=== PATIENT | female | born 2000 | race Caucasian/White ===

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

== ENCOUNTER 2020-02-04 20:02 | Inpatient (IN) | payer OTHER ==
[~2020-02-04] VITALS: Ht 157.5 cm; Wt 122.0 kg
[2020-02-04] MEDS ORDERED: ESCI20 PO (20:23)
[2020-02-04] MEDS ORDERED: ACYC400 (20:23)
[2020-02-04 20:25] LABS: BASOPHILS ABSOLUTE AUTO 0.04 K/mm3 (0.00-0.23); BASOPHILS PERCENT AUTO 0 % (0-2); EOSINOPHILS ABSOLUTE AUTO 0.12 K/mm3 (0.00-0.68); EOSINOPHILS PERCENT AUTO 1 % (0-6); Hemoglobin 13.5 g/dL (11.5-16.0); IMMATURE GRAN ABSOLUTE AUTO 0.11 K/mm3 (0.00-0.10); IMMATURE GRAN PERCENT AUTO 1 % (0-1); LYMPHOCYTES ABSOLUTE AUTO 2.87 K/mm3 (0.84-5.20); LYMPHOCYTES PERCENT AUTO 19 % (21-46); MONOCYTES ABSOLUTE AUTO 1.05 K/mm3 (0.16-1.47); MONOCYTES PERCENT AUTO 7 % (4-13); Mean Corpuscular HGB 28.3 pg (26.0-34.0); Mean Corpuscular HGB Conc 32.9 g/dL (31.5-36.5); Mean Corpuscular Volume 86 fL (80-100); Mean Platelet Volume 10.6 fL (9.1-12.4); NEUTROPHILS PERCENT AUTO 72 % (41-73); Platelet Count 250 K/mm3 (150-400); RDW Standard Deviation 43.7 fL (35.1-46.3); Red Blood Cell Count 4.77 M/mm3 (3.80-5.20); White Blood Cell Count 14.99 K/mm3 (4.00-11.30)
[2020-02-04 20:46] LABS: International Normalized Ratio 0.9; Prothrombin Time Results 9.7 Sec (9.7-11.5)
[2020-02-06 06:02] LABS: BASOPHILS ABSOLUTE AUTO 0.04 K/mm3 (0.00-0.23); BASOPHILS PERCENT AUTO 0 % (0-2); EOSINOPHILS PERCENT AUTO 0 % (0-6); Hematocrit 34.3 % (33.0-51.0); Hemoglobin 11.2 g/dL (11.5-16.0); IMMATURE GRAN PERCENT AUTO 1 % (0-1); LYMPHOCYTES ABSOLUTE AUTO 1.89 K/mm3 (0.84-5.20); LYMPHOCYTES PERCENT AUTO 8 % (21-46); MONOCYTES ABSOLUTE AUTO 1.85 K/mm3 (0.16-1.47); MONOCYTES PERCENT AUTO 8 % (4-13); Mean Corpuscular HGB 27.9 pg (26.0-34.0); Mean Corpuscular HGB Conc 32.7 g/dL (31.5-36.5); Mean Corpuscular Volume 86 fL (80-100); Mean Platelet Volume 10.4 fL (9.1-12.4); NEUTROPHILS ABSOLUTE AUTO 18.99 K/mm3 (1.96-9.15); NEUTROPHILS PERCENT AUTO 82 % (41-73); Platelet Count 218 K/mm3 (150-400); RDW Coefficient Variation 14.2 % (11.7-14.2); RDW Standard Deviation 43.5 fL (35.1-46.3); Red Blood Cell Count 4.01 M/mm3 (3.80-5.20); White Blood Cell Count 23.07 K/mm3 (4.00-11.30)
[2020-02-06 06:38] LABS: International Normalized Ratio 0.92; Prothrombin Time Results 9.9 Sec (9.7-11.5)
--- NOTE | 2020-02-06 09:56 | NUR ---
RN ROUNDED TOP HELP WITH . RN HELPED TO LATCH NB. INSTRUCT/DEMO WIDENING LATCH, CORRECT POSITIONING, AND NIPPLE SHAPE AFTER FEEDS. INSTRUCT/REVIEWED BOOKLET AND BROCHURE ON WHAT TO EXPECT DURING THE FIRST WEEK WITH AND CHANGES IN NB. PT VERBALIZED UNDERSTANDING AND DENIES ANY FURTHER QUESTIONS OR CONCERNS.
--- NOTE | 2020-02-06 10:18 | NUR ---
PT UP AMBULATING IN HALLS WITH INFANT
--- NOTE | 2020-02-06 18:05 | NUR ---
AMBULATING HALLS WITH AND SIGNIFICANT OTHER
[2020-02-07 05:00] LABS: International Normalized Ratio 1.02; Prothrombin Time Results 10.9 Sec (9.7-11.5)
--- NOTE | 2020-02-07 07:44 | NUR ---
Pt sleeping soundly, did not wake when breakfast brought to room. SO asleep at bedside.
[2020-02-07] MEDS ORDERED: Percocet 5-3251 EACH PO (10:37)
[2020-02-07] MEDS ORDERED: WARF1 PO (10:39)
[2020-02-07] MEDS ORDERED: WARF5 PO ×2 (10:39)
--- NOTE | 2020-02-07 12:08 | NUR ---
No acute changes t/o shift. ID bands matched w/nb. Pt denies additional questions/concerns. Pt d/c'd home ambulatory to care of SO.
== END 2020-02-07 12:10 | disposition home or self-care (01) | DRG 806 ==
LOC: BC 20:02
PROVIDERS: ADMIT Nurse Practitioner Obstetrics & Gynecology
PROC: 3E0P7VZ Introduction of Hormone into Female Reproductive, Via Natural or Artificial Opening (ICD-10-PCS; 2020-02-04)
PROC: 10E0XZZ Delivery of Products of Conception, External Approach (ICD-10-PCS; principal; 2020-02-05)
PROC: 10907ZC Drainage of Amniotic Fluid, Therapeutic from Products of Conception, Via Natural or Artificial Opening (ICD-10-PCS; 2020-02-05)
PROC: 3E033VJ Introduction of Other Hormone into Peripheral Vein, Percutaneous Approach (ICD-10-PCS; 2020-02-05)
PROC: 0HQ9XZZ Repair Perineum Skin, External Approach (ICD-10-PCS; 2020-02-05)
PROC: 3E0R3BZ Introduction of Anesthetic Agent into Spinal Canal, Percutaneous Approach (ICD-10-PCS; 2020-02-05)
DX: O99.12 Other diseases of the blood and blood-forming organs and certain disorders involving the immune mechanism complicating childbirth (principal); D68.51 Activated protein C resistance; Z37.0 Single live birth; Z3A.39 39 weeks gestation of pregnancy; O69.81X0 Labor and delivery complicated by cord around neck, without compression, not applicable or unspecified; O77.0 Labor and delivery complicated by meconium in amniotic fluid; O99.344 Other mental disorders complicating childbirth; F41.9 Anxiety disorder, unspecified; F32.9 Major depressive disorder, single episode, unspecified; O70.0 First degree perineal laceration during delivery; O99.214 Obesity complicating childbirth; E66.01 Morbid (severe) obesity due to excess calories
CPT/HCPCS: 36415; 51702; 85025; 85610; 85730; 86850; 86900; 86901; J1650; J2001; J2210; J2405; J2590; J3010; J7120

== ENCOUNTER 2020-05-10 19:46 | Emergency (ER) | payer OTHER ==
[~2020-05-10] VITALS: Ht 157.5 cm; Wt 113.4 kg
[~2020-05-10 19:46] MED LIST changes: +ACYC400; +WARF1 PO; +WARF5 PO
== END 2020-05-10 23:59 | disposition home or self-care (01) ==
LOC: ER 19:46
DX: J06.9 Acute upper respiratory infection, unspecified (principal); Z20.828 Contact with and (suspected) exposure to other viral communicable diseases; Z88.0 Allergy status to penicillin
CPT/HCPCS: 71045; 99284-25; U0002

== ENCOUNTER 2023-12-19 18:55 | Inpatient (IN) | payer OTHER ==
[~2023-12-19] VITALS: Ht 157.5 cm; Wt 126.0 kg
[2023-12-19] MEDS ORDERED: Castor Oil 59.146 ML BTL TOP SCH (20:30)
[2023-12-19] MEDS ORDERED: LR Oxytocin 20 Units 1,000 ML IV SCH (20:30)
[2023-12-19] MEDS ORDERED: FentaNYL 2mcg/ml-Bup 0.1% Epd 250 ML EPI PRN (20:30)
[2023-12-19] MEDS ORDERED: Bupivacaine 0.5% HCl 5 MG/ML 30MLVIAL XX SCH (20:30)
[2023-12-19] MEDS ORDERED: Lactated Ringer's 1,000 ML IV SCH (20:30)
[2023-12-19] MEDS ORDERED: ePHEDrine Sulfate 50 MG/ML 1ML Injection XX PRN (20:30)
[2023-12-19] MEDS ORDERED: Lidocaine HCl 1% 30 ML SDV XX SCH (20:30)
[2023-12-19] MEDS ORDERED: Bupivacaine HCl 2.5 MG/ML 10ML P/F Injection XX SCH (20:30)
[2023-12-19] MEDS ORDERED: Methylergonovine Maleate 0.2MG / ML 1ML Amp IM SCH (20:30)
[2023-12-19] MEDS ORDERED: Misoprostol 25 MCG Tab VAG PRN (20:30)
[2023-12-19] MEDS ORDERED: Misoprostol 200 MCG Tab PR SCH (20:30)
[2023-12-19] MEDS ORDERED: Oxytocin 10 Unit / ML Vial IM SCH (20:30)
[2023-12-19] MEDS ORDERED: Lactated Ringer's 1,000 ML IV PRN (20:30)
[2023-12-19] MEDS ORDERED: Acetaminophen 500 MG Tab PO PRN (20:35)
[2023-12-19] MEDS ORDERED: FentaNYL Citrate 50 MCG/ML 2 ML Injection IV PRN (20:35)
[2023-12-19] MEDS ORDERED: Calcium Carbonate 500 MG Tab Chew PO PRN (20:35)
[2023-12-19] MEDS ORDERED: Ondansetron HCl 2 MG / ML 2ML Vial IV PRN (20:35)
[2023-12-19 20:47] LABS: BASOPHILS ABSOLUTE AUTO 0.03 K/mm3 (0.00-0.23); BASOPHILS PERCENT AUTO 0 % (0-2); EOSINOPHILS PERCENT AUTO 1 % (0-6); Hematocrit 37.2 % (33.0-51.0); Hemoglobin 12.2 g/dL (11.5-16.0); IMMATURE GRAN ABSOLUTE AUTO 0.06 K/mm3 (0.00-0.10); IMMATURE GRAN PERCENT AUTO 1 % (0-1); LYMPHOCYTES ABSOLUTE AUTO 2.24 K/mm3 (0.84-5.20); LYMPHOCYTES PERCENT AUTO 20 % (21-46); MONOCYTES ABSOLUTE AUTO 0.69 K/mm3 (0.16-1.47); MONOCYTES PERCENT AUTO 6 % (4-13); Mean Corpuscular HGB 27.5 pg (26.0-34.0); Mean Corpuscular HGB Conc 32.8 g/dL (31.5-36.5); Mean Corpuscular Volume 84 fL (80-100); Mean Platelet Volume 9.7 fL (9.1-12.4); NEUTROPHILS ABSOLUTE AUTO 8.33 K/mm3 (1.96-9.15); NEUTROPHILS PERCENT AUTO 73 % (41-73); Platelet Count 184 K/mm3 (150-400); RDW Coefficient Variation 13.5 % (11.7-14.2); RDW Standard Deviation 41.6 fL (35.1-46.3); Red Blood Cell Count 4.43 M/mm3 (3.80-5.20); White Blood Cell Count 11.45 K/mm3 (4.00-11.30)
[2023-12-19] MEDS ORDERED: ENOX40I SC (22:02)
[2023-12-19 22:13] VITALS: BP 117/55
[2023-12-19] MEDS ORDERED: DULO30 (22:55)
[2023-12-19] MEDS ORDERED: DiphenhydrAMINE HCl 50 MG Cap PO PRN (23:15)
[2023-12-19] MEDS ORDERED: Zolpidem Tartrate 5 MG Tab PO PRN (23:20)
[2023-12-20] VITALS (35 sets, daily range): BP systolic 97–140; BP diastolic 51–71
[2023-12-20] MEDS ORDERED: Lactated Ringer's 1,000 ML IV SCH ×2 (07:15→13:35)
[2023-12-20] MEDS ORDERED: LR Oxytocin 20 Units 1,000 ML IV SCH ×2 (07:15→13:35)
[2023-12-20] MEDS ORDERED: Ibuprofen 400 MG Tab PO PRN (13:30)
[2023-12-20] MEDS ORDERED: FLU VACC QS2023-24(6MOS UP)/PF 60 MCG/0.5 ML SYRINGE IM SCH (13:30)
[2023-12-20] MEDS ORDERED: Witch Hazel/Glycerin PADS TOP PRN (13:30)
[2023-12-20] MEDS ORDERED: Benzocaine Topical Anesthetic Spray 60GM TOP PRN (13:35)
[2023-12-20] MEDS ORDERED: Methylergonovine Maleate 0.2MG / ML 1ML Amp IM PRN (13:35)
[2023-12-20] MEDS ORDERED: Misoprostol 200 MCG Tab PO PRN (13:35)
[2023-12-20] MEDS ORDERED: Lanolin Cream TOP PRN (13:35)
[2023-12-20] MEDS ORDERED: Docusate Sodium 100 MG Cap PO PRN (13:40)
[2023-12-20] MEDS ORDERED: OxyCODONE 5 mg/Acetamin 325 mg TABLET PO PRN (13:40)
[2023-12-20] MEDS ORDERED: Ketorolac Tromethamine 30mg Vial IV ONE (14:00)
[2023-12-20] MEDS ORDERED: Ketorolac Tromethamine 30mg Vial IV PRN (14:00)
[2023-12-20] MEDS ORDERED: Enoxaparin 40 MG/0.4 ML SYR SC SCH (19:30)
[2023-12-21 00:42] VITALS: BP 115/62
[2023-12-21 05:05] VITALS: BP 101/58
--- NOTE | 2023-12-21 06:32 | NUR ---
Pt sitting in bed with Baby. no needs at this time.
[2023-12-21 07:47] VITALS: BP 101/65
[2023-12-21] MEDS ORDERED: DULoxetine HCL 60 MG Capsule DR PO SCH (09:00)
[2023-12-21] MEDS ORDERED: Prenatal Vit/FE Fumarate/FA 1 Tab PO SCH (09:00)
[2023-12-21 11:14] VITALS: BP 133/63
[2023-12-21 12:37] VITALS: BP 134/60
== END 2023-12-21 15:30 | disposition home or self-care (01) | DRG 806 ==
LOC: OBS 18:55 → BC 18:58 → OBS 19:07 → BC 19:08
PROVIDERS: ADMIT Advanced Practice Midwife
PROC: 10E0XZZ Delivery of Products of Conception, External Approach (ICD-10-PCS; principal; 2023-12-20)
PROC: 10907ZC Drainage of Amniotic Fluid, Therapeutic from Products of Conception, Via Natural or Artificial Opening (ICD-10-PCS; 2023-12-20)
PROC: 3E0P7VZ Introduction of Hormone into Female Reproductive, Via Natural or Artificial Opening (ICD-10-PCS; 2023-12-20)
PROC: 3E033VJ Introduction of Other Hormone into Peripheral Vein, Percutaneous Approach (ICD-10-PCS; 2023-12-20)
DX: O99.12 Other diseases of the blood and blood-forming organs and certain disorders involving the immune mechanism complicating childbirth (principal); D68.51 Activated protein C resistance; Z37.0 Single live birth; Z3A.39 39 weeks gestation of pregnancy; O99.324 Drug use complicating childbirth; F12.90 Cannabis use, unspecified, uncomplicated; O69.81X0 Labor and delivery complicated by cord around neck, without compression, not applicable or unspecified
CPT/HCPCS: 36415; 51702; 85025; 86850; 86900; 86901; 86923; A9270; J1650; J2590; J3010; J7120

== ENCOUNTER → 2025-05-28 | Outpatient (CLI) | payer OTHER ==
[~2025-05-28] MED LIST changes: +DULO30; +ENOX40I SC
== END | disposition home or self-care (01) ==
LOC: LAB SHORT 18:21 → LAB 18:21
DX: L30.9 Dermatitis, unspecified (principal)
CPT/HCPCS: 87070; 87205

== ENCOUNTER 2025-07-09 06:09 | Day surgery (SDC) | payer OTHER ==
[~2025-07-09] VITALS: Ht 157.5 cm; Wt 100.1 kg
[2025-07-09] VITALS (8 sets, daily range): BP systolic 104–146; BP diastolic 67–79
[~2025-07-09 06:09] MED LIST changes: +BUSPIRONE HCL30 M1 PO; -DULO30; +DULO60 PO; +IBUP800 PO; +MOUNJARO2.5 MG/0.5 SC; +OXYC5 PO; +SPIR50 PO
[2025-07-09] MEDS ORDERED: CeFAZolin Sodium 2,000 MG in NS 100 ML IV SCH (06:20)
[2025-07-09] MEDS ORDERED: Bupivacaine 0.5% HCl 5 MG/ML 30MLVIAL ONE (07:01)
[2025-07-09] MEDS ORDERED: FentaNYL Citrate 50 MCG/ML 2 ML Injection ONE ×3 (07:28→08:19)
[2025-07-09] MEDS ORDERED: Midazolam HCl 1MG / ML 2ML Vial ONE (07:29)
[2025-07-09] MEDS ORDERED: Ondansetron HCl 2 MG / ML 2ML Vial ONE (07:42)
[2025-07-09] MEDS ORDERED: Dexamethasone Sod Phos 10 MG/ML 1ML VIAL ONE (07:42)
[2025-07-09] MEDS ORDERED: HYDROmorphone HCl/Pf 1MG SYR IV PRN ×3 (08:05→09:30)
[2025-07-09] MEDS ORDERED: FentaNYL Citrate 50 MCG/ML 2 ML Injection IV PRN ×2 (08:10→08:20)
[2025-07-09] MEDS ORDERED: Albuterol 2.5 MG/3 ML VIAL INH PRN (08:10)
[2025-07-09] MEDS ORDERED: Metoclopramide HCl 5MG / ML 2ML Vial IV PRN ×2 (08:10→09:20)
[2025-07-09] MEDS ORDERED: Ondansetron HCl 2 MG / ML 2ML Vial IV PRN ×2 (08:10→09:20)
[2025-07-09] MEDS ORDERED: Sugammadex Sodium 200 MG/2ML SDV (100 MG/ML) ONE (09:01)
[2025-07-09] MEDS ORDERED: Rocuronium Bromide 10 MG/ML 5ML Injection IV ONE (09:01)
[2025-07-09] MEDS ORDERED: Ketorolac Tromethamine 30mg Vial ONE (09:01)
[2025-07-09] MEDS ORDERED: HYDROmorphone HCl/Pf 1MG SYR ONE ×3 (09:07→09:52)
[2025-07-09] MEDS ORDERED: Ketorolac Tromethamine 30mg Vial IV PRN ×2 (09:20→10:15)
[2025-07-09] MEDS ORDERED: Naloxone HCl 0.4MG / ML 1ML Vial IV PRN (09:25)
--- NOTE | 2025-07-09 10:41 | NUR ---
07/09/25 1041 Dominique Ramires UTERUS SPECIMEN PUT ON ICE AND TAKEN WITH PATIENT TO PACU TO BE SENT HOME WITH PATIENT
--- NOTE | 2025-07-09 10:54 | NUR ---
PT TO ROOM 212. LAP SITES X-4. PERIPAD WITH SCANT SPOTTING. ORIENTED TO ROOM. IV TO SL. POST OP VS STARTED AND STABLE. WILL CONTINUE TO MONITOR
[2025-07-09] MEDS ORDERED: MASOPHEN325 M3 PO (12:41)
[2025-07-09] MEDS ORDERED: ENOX40I SC (12:42)
[2025-07-09] MEDS ORDERED: CLIMARA1 EACH TOP (12:43)
--- NOTE | 2025-07-09 12:59 | NUR ---
DC INSTRUCT REVIEWED. WITH PT. PT ABLE TO VOID AND HAS GOOD PAIN CONTROL. STATED UNDERSTANDING. DISCHARGED TO POV VIA W/C WITH PRINTED INSTRUCT.
[2025-07-10] MEDS ORDERED: DULoxetine HCL 60 MG Capsule DR PO SCH (09:00)
[2025-07-10] MEDS ORDERED: Enoxaparin 40 MG/0.4 ML SYR SC SCH (09:00)
== END 2025-07-09 13:01 | disposition home or self-care (01) ==
LOC: ORSCMMR 06:09 → ORD 07:30 → SURS 10:15 → ORSCMMR 13:01
DX: N94.6 Dysmenorrhea, unspecified (principal); N93.8 Other specified abnormal uterine and vaginal bleeding; N83.11 Corpus luteum cyst of right ovary; K21.9 Gastro-esophageal reflux disease without esophagitis; F17.290 Nicotine dependence, other tobacco product, uncomplicated; G47.33 Obstructive sleep apnea (adult) (pediatric); E66.01 Morbid (severe) obesity due to excess calories; Z68.41 Body mass index [BMI] 40.0-44.9, adult; Z79.85 Long-term (current) use of injectable non-insulin antidiabetic drugs; F41.8 Other specified anxiety disorders; D68.51 Activated protein C resistance; E28.2 Polycystic ovarian syndrome; Z79.899 Other long term (current) drug therapy
CPT/HCPCS: 86850; 86900; 86901; 88305; A9270; J0690; J1100; J1171; J1885; J2250; J2405; J2704; J3010; J7120